=== PATIENT | male | born 1970 | race Asian ===

== ENCOUNTER 2024-05-18 00:30 | Emergency (ER) | payer OTHER, SELFPAY ==
--- NOTE | 2024-05-18 00:30 | ECG_ITS ---
APPROVED REPORT Exam: Resting ECG HR:78 bpm ECG Measurements Heart Rate 78 AXES AR 160 P 48 QRSd 89 QRS 57 QT 347 T 29 QTc 380 Conclusion SINUS RHYTHM Isolated T wave inversion in lead III, no STEMI Electronically signed by : DAMON AU, 05/18/2024 02:27:57
--- NOTE | 2024-05-18 00:35 | XR_ITS ---
PROCEDURE INFORMATION: Exam: XR Chest Exam date and time: 05/18/2024 12:30 AM Age: 53 years old Clinical indication: Pain; Chest pressure; Additional info: L side cp TECHNIQUE: Imaging protocol: Radiologic exam of the chest. Views: 2 views. Total images: 2 COMPARISON: No relevant prior studies available. FINDINGS: Lungs: Unremarkable. No consolidation. No pulmonary vascular congestion or edema. Pleural spaces: Unremarkable. No pleural effusion. No pneumothorax. Heart/Mediastinum: Unremarkable. No cardiomegaly. No mediastinal widening or hilar enlargement. Bones/joints: Unremarkable. IMPRESSION: No radiographically acute cardiopulmonary process.
--- NOTE | 2024-05-18 00:38 | [facility].EDCP ---
Discharge Plan Disposition Patient Disposition: Home, Self-Care Condition: Good Referrals Follow up/Referrals: Vinny Sim MD [Staff Physician] - See instructions (Needs PCP) Jose Castellon MD [Staff Physician] - See instructions (chest pain with reassuring ER workup) Activity Restrictions/Add. Instructions Additional Instructions/Restrictions: You were evaluated in the ER and are appropriate for discharge at this time. Follow-up with Dr. Luis Cavazos for primary care. Follow-up with the cardiology clinic with Dr. Castellon to discuss your chest pain again. Return to the ER with any new, worsening, or otherwise concerning symptoms including new or worsening chest pain or difficulty breathing Clinical Impressions Clinical Impression: Chest pain Discharge ED Provider: Sonia Sherman HPI General Chief Complaint: Chest Pain Stated Complaint: chest pain Time Seen by Provider: 05/18/24 00:35 History of Present Illness HPI narrative: 53-year-old male with no reported chronic medical conditions, no daily prescriptions, no known drug allergies presents to the ER with left-sided chest pain radiating to the left shoulder that started approximately 8 hours prior to arrival. Patient reports his pain has been stable. Nothing specific seems to make it better or worse. He thinks it is likely muscular but wanted to be safe. Patient has not taken any medications prior to arrival. No associated symptoms. ROS otherwise negative. Related Data Allergies Allergy/AdvReac Type Severity Reaction Status Date / Time No Known Allergies Allergy Verified 05/18/24 00:53 [facility] Disclaimer: The information contained in this section may have been updated after the patient was seen, as this information can be updated by other users. Social History Smoking Status: Never smoker alcohol intake: never current occupational status: other Travel in the last 8 weeks: None ROS Obtained: Yes All systems reviewed & no additional complaints except as documented Positive ROS per HPI Physical Exam General General appearance: alert and in no apparent distress Head Head exam: atraumatic and normocephalic Eye Eye exam: Present PERRL and EOMI ENT ENT exam: Present mucous membranes moist Neck Neck exam: Present normal inspection and full ROM Chest Chest inspection: Present normal inspection and symmetric chest wall rise; Absent tenderness or rash Respiratory Respiratory exam: Present normal lung sounds bilaterally; Absent respiratory distress, wheezes or stridor Cardiovascular Cardiovascular exam: Present regular rate and normal rhythm Abdominal Exam Abdominal exam: Present soft; Absent distention or tenderness Extremities Exam Extremities exam: Present full ROM Neurological Exam Neurological exam: Present alert and oriented X3; Absent motor sensory deficit Psychiatric Psychiatric exam: Present normal affect and normal mood Skin Skin exam: Present warm and dry HEART Score HEART Score HEART Score assessment performed?: Yes History (anamnesis): Slightly suspicious ECG: Non-specific disturbance Age: 45-65 years Risk factors: No known risk factors Troponin: </= normal limit HEART Score: 2 Critical Care Critical Care Time Critical Care Time: No Medical Decision Making [place]in Inquiry Pt receiving controlled substance: No Vital Signs Vital Signs: 05/18/24 00:39 05/18/24 00:43 Temperature 98.9 F Temperature Source Oral Pulse Rate 79 Pulse Rate [Left Radial] 79 Respiratory Rate 16 Blood Pressure [Right Arm] 164/116 H Blood Pressure Mean [Right Arm] 132 02 Sat by Pulse Oximetry 97 Oxygen Delivery Method Room Air Lab Data Labs: Lab Results 05/18/24 00:35: WBC 10.2, RBC 5.05, Hgb 15.2, Hct 46.6, MCV 92.2, MCH 30.1, MCHC 32.6, RDW 13.7, Plt Count 271, MPV 7.4, Neut % (Auto) 60.3, Lymph % (Auto) 27.5, [place] % (Auto) 7.0, Eos % (Auto) 4.1, Baso % (Auto) 1.1, Neut # (Auto) 6.2, Lymph # (Auto) 2.8, [place] #
[2024-05-18 00:39] VITALS: BP 164/116; PULSE 79; RESP 16; TEMP 37.2; O2SAT 97; BMI 23.8
[2024-05-18 00:43] VITALS: PULSE 79
[2024-05-18 00:47] LABS: Basophils # 0.1 K/mm3 (0-0.2); Basophils % 1.1 % (0.1-2.0); Eosinophils # 0.4 K/mm3 (0.0-0.4); Eosinophils % 4.1 % (0.1-12.0); Hematocrit 46.6 % (42.0-52.0); Hemoglobin 15.2 g/dL (14.1-18.0); Lymphocytes # 2.8 K/mm3 (0.7-4.5); Lymphocytes % 27.5 % (10-50); Mean Corpuscular HGB Conc 32.6 g/dL (31.8-35.4); Mean Corpuscular Hemoglobin 30.1 pg (27.0-31.2); Mean Corpuscular Volume 92.2 fl (80-94); Mean Platelet Volume 7.4 fl (7.4-10.4); Monocytes # 0.7 K/mm3 (0.1-1.0); Neutrophils # 6.2 K/mm3 (1.8-7.8); Neutrophils % 60.3 % (37.0-80.0); Platelet Count 271 K/mm3 (142-424); Red Blood Count 5.05 M/mm3 (4.60-6.20); Red Cell Distribution Width 13.7 % (11.5-17.5); White Blood Count 10.2 K/mm3 (4.8-10.8)
[2024-05-18 00:57] LABS: Alanine Aminotransferase 34 U/L (12-78); Albumin Level 4.4 g/dl (3.5-5.0); Albumin/Globulin Ratio 1.1 (1.1-1.8); Aspartate Amino Transferase 44 U/L (17-59); Blood Urea Nitrogen 8 mg/dl (9-20); Calcium 8.9 mg/dl (8.4-10.2); Carbon Dioxide 29 mmol/L (22.0-30.0); Chloride 106 mmol/L (98-107); Creatinine Clearance Estimated 109 mL/min (50-200); Estimated Glomerular Filt Rate 118 ml/min (>60); GFR (African American) 143 ML/MIN (>60); Glucose 84 mg/dl (74-100); Sodium 141 mmol/L (136-145); Total Protein,Serum 8.4 g/dl (6.3-8.2)
[2024-05-18 01:00] VITALS: BP 164/116; PULSE 82; RESP 24; O2SAT 98
[2024-05-18 01:09] LABS: Alkaline Phosphatase 59 U/L (38-126); Bilirubin,Total 0.7 mg/dl (0.2-1.3); Troponin I < 0.01 ng/ml (0.00-0.034)
[2024-05-18 01:17] LABS: Anion Gap 9.5 mEq/L (5-15); Potassium 3.5 mmoL/L (3.5-5.1)
[2024-05-18 01:30] VITALS: BP 131/97; PULSE 75; RESP 21; O2SAT 98
[2024-05-18 01:53] VITALS: BP 146/105; PULSE 70; RESP 18; TEMP 36.7; O2SAT 97
[2024-05-18 01:59] VITALS: BP 146/105; PULSE 71; RESP 18; O2SAT 98
== END 2024-05-18 02:14 | disposition home or self-care (01) ==
LOC: ER 02:14
PROVIDERS: Emergency Medicine; Emergency Provider Emergency Medicine
DX: R07.9 Chest pain, unspecified (principal)
CPT/HCPCS: 71046; 80053; 84484; 85025; 93005; 99284